=== PATIENT | male | born 1985 ===

== ENCOUNTER 2017-01-24 23:29 | Emergency (ER) | payer OTHER ==
[~2017-01-24] VITALS: Ht 182.9 cm; Wt 91.5 kg
[2017-01-24 23:39] VITALS: Ht 182.9 cm; Wt 91.5 kg
--- NOTE | 2017-01-25 01:46 | ERD ---
ER Documentation Chief Complaint Date/Time DATE: 01/25/17 TIME: 01:43 Chief Complaint chest pain x 2 days HPI 31-year-old male presents here in emergency department for complaint of left- sided chest pain started 2 days ago. Patient describes the pain as sharp pain, 6 /10 scale, radiates from the left chest area to the left jaw area. Patient denies any trauma in on the chest area. Patient denies any fever or chills. Patient denies any numbness or tingling. Patient denies any shortness of breath. Patient denies any cough or wheezing. ROS All systems reviewed and are negative except as per history of present illness. Medications Home Meds Active Scripts Tramadol HCl (Tramadol HCl) 50 Mg Tablet, 50 MG PO Q6 Y for SEVERE PAIN LEVEL 7- 10, #20 TAB Prov:BELEN TURNER BUDGET ASSISTANT 01/25/17 Ibuprofen* (Motrin*) 600 Mg Tab, 600 MG PO Q6H Y for PAIN AND OR ELEVATED TEMP, #30 TAB Prov:BELEN TURNER BUDGET ASSISTANT 01/25/17 Reported Medications [none] Unknown Strength No Conflict Check 01/25/17 Allergies Allergies: Coded Allergies: No Known Allergy (Unverified , 01/24/17) PMhx/Soc History of Surgery: No Anesthesia Reaction: No Hx Neurological Disorder: No Hx Respiratory Disorders: No Hx Cardiac Disorders: Yes (HTN) Hx Psychiatric Problems: No Hx Miscellaneous Medical Probl: Yes ("MAJOR" ANXIETY) Hx Alcohol Use: No Hx Substance Use: No Hx Tobacco Use: No Smoking Status: Never smoker FmHx Family History: No coronary disease, No diabetes, No other Physical Exam Vitals Vital Signs Date Time Temp Pulse Resp B/P Pulse Ox O2 Delivery O2 Flow Rate FiO2 01/24/17 23:39 98.3 71 20 119/73 100 Physical Exam GENERAL: The patient is well developed and appropriate for usual state of health, in no apparent distress. CHEST: Clear to auscultation bilaterally. There are no rales, wheezes or rhonchi. HEART: Regular rate and rhythm. No murmurs, clicks, rubs or gallops. No S3 or S4. ABDOMEN: Soft, nontender and nondistended. Good bowel sounds. No rebound or guarding. No gross peritonitis. No gross organomegaly or masses. No Yepez sign or McBurney point tenderness. BACK: No midline or flank tenderness. EXTREMITIES: Equal pulses bilaterally. There is no peripheral clubbing, cyanosis or edema. No focal swelling or erythema. Full range of motion. Grossly neurovascularly intact. NEURO: Alert and oriented. Cranial nerves 2-12 intact. Motor strength in all 4 extremities with 5/5 strength. Sensation grossly intact. Normal speech and gait. SKIN: There is no apparent rash or petechia. The skin is warm and dry. HEMATOLOGIC AND LYMPHATIC: There is no evidence of excessive bruising or lymphedema. No gross cervical, axillary, or inguinal lymphadenopathy. Result Diagram: 01/25/17 0205 01/25/17 020 Results 24 hrs Laboratory Tests Test 01/25/17 02:05 White Blood Count 6.510^3/ul Red Blood Count 4.1110^6/ul Hemoglobin 13.1g/dl Hematocrit 37.8% Mean Corpuscular Volume 92.0fl Mean Corpuscular Hemoglobin 31.9pg Mean Corpuscular Hemoglobin Concent 34.7g/dl Red Cell Distribution Width 12.3% Platelet Count 88311^3/UL Mean Platelet Volume 10.8fl Neutrophils % 46.4% Lymphocytes % 43.3% Monocytes % 6.0% Eosinophils % 3.5% Basophils % 0.6% Nucleated Red Blood Cells % 0.0/100WBC Neutrophils # 3.010^3/ul Lymphocytes # 2.810^3/ul Monocytes # 0.410^3/ul Eosinophils # 0.210^3/ul Basophils # 0.010^3/ul Nucleated Red Blood Cells # 0.010^3/ul Sodium Level 142mmol/L Potassium Level 4.3mmol/L Chloride Level 104mmol/L Carbon Dioxide Level 29mmol/L Anion Gap 13 Blood Urea Nitrogen 17mg/dl Creatinine 0.74mg/dl Glucose Level 90mg/dl Calcium Level 9.1mg/dl Total Bilirubin 0.9mg/dl Direct Bilirubin 0.00mg/dl Indirect Bilirubin 0.9mg/dl Aspartate Amino Transf (AST/SGOT) 15IU/L Alanine Aminotransferase (ALT/SGPT) 36IU/L Alkaline Phosphatase 43IU/L Troponin I < 0.012ng/ml Total Protein 6.6g/dl Albumin 4.0g/dl Globulin 2.60g/dl Albumin/Globulin Ratio 1.53 Current Medications Medications (Trade) Dose Ordered Sig/Kody Route PRN Reason Start Time Stop Time Status Last Admin Dose Admin Tramadol HCl (Ultram) 50 mg ONCE ONCE PO 01/25/17 03:30 01/25/17 03:31 EKG was done, read by me and is normal sinus rhythm at a rate of 77, normal axis , there is no ST changes or changes in the EKG that indicates any cardiac emergencies at this time. Patient's EKG was also reviewed by Dr Yang. Impression : no acute findings on EKG PROCEDURE: CHEST - 1 VIEW CLINICAL INDICATION: 31-year-old male with chest pain. TECHNIQUE: A single frontal AP upright view of the chest was performed portably. The images were reviewed on a PACS workstation. COMPARISON: None. FINDINGS: The cardiomediastinal silhouette has a normal appearance. There is no evidence for an infiltrate. There is no evidence for congestive heart failure. There is no evidence for pneumothorax. The osseous structures are intact. IMPRESSION: No evidence for active cardiopulmonary disease. .Ranulfo Womack MD, Date Time Electronically viewed and signed by .Ranulfo Womack MD, MD on 01/25/2017 02:03 .M/ CC: BELEN TURNER NP Patient was given medication for pain here in emergency department, after treatment, patient verbalized feeling much better. Patient's pain is improved. Procedures/MDM Medical Decision Making: Patient's chest pain nonspecific at this time, possible costochondritis, musculoskeletal pain, nonspecific. There is low suspicion for cardiopulmonary emergencies at this time. Patient has low risk factors. EKG is normal, there is no changes in the EKG that indicates cardiac emergencies. Chest X-ray does not show cardiopulmonary emergencies at this time. There is low suspicion for aortic aneurysm, myocardial infarction, pneumothorax, pleural effusion, pulmonary embolism, or any other cardiopulmonary emergencies at this time. Cardiac markers are normal. Patient was given for ibuprofen, tramadol for severe pain, is advised to follow-up with primary doctor in 1-2 days for reevaluation of symptoms, possible cardiology evaluation if necessary, patient was advised to return to emergency department for any worsening symptoms. Departure Diagnosis: Primary Impression: Atypical chest pain Condition: Stable Patient Instructions: Chest Pain, Uncertain Cause BELEN TURNER NP Jan 25, 2017 01:46
--- NOTE | 2017-01-25 02:03 | RADRPT ---
PROCEDURE: CHEST - 1 VIEW CLINICAL INDICATION: 31-year-old male with chest pain. TECHNIQUE: A single frontal AP upright view of the chest was performed portably. The images were reviewed on a PACS workstation. COMPARISON: None. FINDINGS: The cardiomediastinal silhouette has a normal appearance. There is no evidence for an infiltrate. There is no evidence for congestive heart failure. There is no evidence for pneumothorax. The osseou s structures are intact. IMPRESSION: No evidence for active cardiopulmonary disease. .Ranulfo Womack MD, MD Date Time Electronically viewed and signed by .Ranulfo Womack MD, on 01/25/2017 02:03 .Nancy/
[2017-01-25 02:32] LABS: ADD SCAN DIFF NO
[2017-01-25 02:34] LABS: BASOPHILS % 0.6 % (0.0-2.0); EOSINOPHILS # 0.2 10^3/ul (0.0-0.5); EOSINOPHILS % 3.5 % (0.0-7.0); HEMATOCRIT 37.8 % (42.0-52.0); HEMOGLOBIN 13.1 g/dl (14.0-18.0); LYMPHOCYTES # 2.8 10^3/ul (0.8-2.9); LYMPHOCYTES % 43.3 % (15.0-51.0); MEAN CORPUSCULAR HEMOGLOBIN 31.9 pg (29.0-33.0); MEAN CORPUSCULAR HGB CONC 34.7 g/dl (32.0-37.0); MEAN PLATELET VOLUME 10.8 fl (7.4-10.4); MONOCYTE # 0.4 10^3/ul (0.3-0.9); NEUTROPHILS % 46.4 % (39.0-77.0); PLATELET COUNT 236 10^3/UL (140-415); RED BLOOD COUNT 4.11 10^6/ul (4.70-6.10); RED CELL DISTRIBUTION WIDTH 12.3 % (11.5-14.5); WHITE BLOOD COUNT 6.5 10^3/ul (4.8-10.8)
[2017-01-25 02:49] LABS: CHLORIDE 104 mmol/L (97-110); POTASSIUM 4.3 mmol/L (3.5-5.1); SODIUM 142 mmol/L (135-144)
[2017-01-25 02:51] LABS: ANION GAP 13 (8-16); ASPARTATE AMINO TRANSFERASE 15 IU/L (15-46); BILIRUBIN,INDIRECT 0.9 mg/dl (0-1.1); BILIRUBIN,TOTAL 0.9 mg/dl (0.2-1.3); CARBON DIOXIDE 29 mmol/L (21-31); CREATININE 0.74 mg/dl (0.61-1.24)
[2017-01-25 02:52] LABS: ALANINE AMINOTRANSFERASE 36 IU/L (13-69); ALBUMIN/GLOBULIN RATIO 1.53; ALKALINE PHOSPHATASE 43 IU/L (42-121); BLOOD UREA NITROGEN 17 mg/dl (7-20); GLUCOSE 90 mg/dl (70-220); TOTAL PROTEIN 6.6 g/dl (6.1-8.1)
[2017-01-25 02:53] LABS: CALCIUM 9.1 mg/dl (8.4-10.2)
[2017-01-25 03:09] LABS: TROPONIN-I < 0.012 ng/ml (0.00-0.12)
[2017-01-25] MEDS ORDERED: TRAM50TA2 PO (03:17)
[2017-01-25] MEDS ORDERED: IBUP-1542 PO (03:17)
[2017-01-25] MEDS ORDERED: traMADol 50 MG TAB PO ONE (03:30)
[2017-01-25 03:32] VITALS: BP 118/88; PULSE 78; RESP 20; TEMP 98.6
== END 2017-01-25 03:33 | disposition home or self-care (01) ==
LOC: FTE 23:29
DX: R07.89 Other chest pain (principal); I10 Essential (primary) hypertension
CPT/HCPCS: 36415; 71010; 80053; 84484; 85025; 93005; Z7502; Z7610